=== PATIENT | male | born 1985 | race Caucasian/White ===

== ENCOUNTER → 2023-12-21 | Outpatient (CLI) | payer BC ==
[2023-12-21 16:10] LABS: ALT 32 U/L (10-49); AST 29 U/L (14-35); Albumin 4.7 g/dL (3.8-4.9); Albumin/Globulin Ratio 1.88 Ratio (1.60-3.17); Alkaline Phosphatase 79 U/L (41-126); BUN/Creat Ratio 17.33 Ratio (12.00-20.00); Blood Urea Nitrogen 20.8 mg/dL (9.0-27.0); C Reactive Protein <0.30 mg/dL (0.00-0.80); Calcium 9.7 mg/dL (8.7-10.3); Carbon Dioxide 26.7 mmol/L (21.6-31.8); Chloride 102 mmol/L (96-109); Globulin 2.5 g/dL (1.6-3.3); Glucose 82 mg/dL (70-110); Potassium 3.7 mmol/L (3.5-5.5); Sodium 142 mmol/L (135-145); Total Bilirubin 0.4 mg/dL (0.3-1.2); Total Protein 7.2 g/dL (6.2-8.2)
== END | disposition home or self-care (01) ==
LOC: LABWHC1 11:58
PROVIDERS: ATTEND Internal Medicine Critical Care Medicine
DX: D86.9 Sarcoidosis, unspecified (principal)
CPT/HCPCS: 36415; 80053; 82164; 85652; 86140

== ENCOUNTER 2024-02-13 11:25 | Day surgery (SDC) | payer BC ==
[2024-02-12 11:32] VITALS: BMI 33.2
[~2024-02-13 11:25] MED LIST: LACTATED RINGERS 1,000 ML IV SCH
[2024-02-13] MEDS: ATROPINE SULFATE 0.4 MG/ML 1 ML VIAL IM ONE (12:50)
[2024-02-13] MEDS: IV FLUID CONTINUATION 1,000 ML IV ONE (12:56)
[2024-02-13] MEDS ORDERED: LIDOCAINE 1% INJ 10MG/ML (20 ML MDV) ONE (12:58)
[2024-02-13] MEDS ORDERED: PROPOFOL 10 MG/ML 20 ML VIAL IV ONE (12:58)
[2024-02-13] MEDS ORDERED: KETAMINE HCL IN 0.9 % NACL 50 MG/5 ML SYRINGE ONE (12:58)
[2024-02-13] MEDS ORDERED: MIDAZOLAM 2 MG/2 ML VIAL ONE (12:58)
[2024-02-13] MEDS ORDERED: SUCCINYLCHOLINE CHLORIDE 200 MG/10 ML VIAL IV ONE (12:58)
[2024-02-13] MEDS ORDERED: fentaNYL (PF) 50 MCG/ML 2 ML AMP ONE (12:58)
[2024-02-13 13:44] VITALS: RESP 18; TEMP 98
--- NOTE | 2024-02-13 14:21 | XR ---
EXAMINATION TYPE: XR chest 1V portable DATE OF EXAM: 02/13/2024 CLINICAL HISTORY: POST BRONCH TECHNIQUE: Single frontal view of the chest is obtained. COMPARISON: None FINDINGS: There is no pleural effusion, or pneumothorax seen. Increased density right lower lobe. Th e cardiac silhouette size is within normal limits. The osseous structures are intact. IMPRESSION: No pneumothorax seen. [facility], , 02/13/2024 2:19 PM
[2024-02-13 14:30] VITALS: BP 129/86; PULSE 84
--- NOTE | 2024-02-13 15:02 | FL ---
EXAMINATION TYPE: FL bronchoscopy DATE OF EXAM: 02/13/2024 COMPARISON: NONE HISTORY: ENLARGED LYMPH NODES TECHNIQUE: Fluoroscopy. FINDINGS: hx chronic cough, bronch to r/o sarcoidosis IMPRESSION: As Above. [facility], , 02/13/2024 3:00 PM
--- NOTE | 2024-02-13 20:12 | PCN ---
PROCEDURE NOTE PROCEDURES PERFORMED: Bronchoscopy, airway examination, therapeutic lavage, BAL right lower lobe, brushes right lower lobe, endobronchial and transbronchial biopsies right lower lobe. PREOPERATIVE DIAGNOSIS: Rule out sarcoid. POSTOPERATIVE DIAGNOSIS: Rule out sarcoid. There was informed consent and universal timeout. The patient's procedure was done in room #1 [facility]. ANESTHESIA PROVIDED: General endotracheal anesthesia. PROCEDURE IN DETAIL: The patient was prepared in usual fashion. After the patient was intubated and on the mechanical ventilator, and anesthetized, the bronchoscope was inserted through the bronchoscope adapter connected to the endotracheal tube. The bronchoscope was pushed through the endotracheal tube into the lung. We did a thorough evaluation of both lungs, including right upper lobe and its 3 segments, right middle lobe and its 2 segments right lower lobe and its 5 segments, left upper lobe proper and its 2 segments, lingula and its 2 segments and the left lower lobe and its 4 segments. There was no endobronchial disease noted. The airways were pristine. There was no mass or tumor. There was no bleeding. Next, on the right side, under fluoroscopic guidance, we did brushes to the right lower lobe. Next, under fluoroscopic guidance, we did multiple endobronchial and transbronchial biopsies to the right lower lobe. We got at least 10 biopsy pieces. Finally, we did a BAL right lower lobe. The patient tolerated the procedure well. We checked for pneumothorax prior to removing the bronchoscope. There was none. The patient tolerated the procedure well without any bleeding. Chest x-ray will be done. By the way, the operators were Dr. Tabor and Dr. Hanson. The patient will be recovered. No additional recommendations are made. MMODL / IJN: [id number] /
[2024-02-14 04:35] LABS: Appearance,BF Bloody (Clear)
[2024-02-14 05:09] LABS: RBC, Body Fluid 89000 /UL (0-2000)
[2024-02-14 13:24] LABS: Nucleated Cells, Body Fluid 0 /UL
== END 2024-02-13 15:00 | disposition home or self-care (01) ==
LOC: ORWHC2ENDO 11:25
PROVIDERS: ATTEND Internal Medicine Critical Care Medicine
DX: R91.8 Other nonspecific abnormal finding of lung field (principal); R59.0 Localized enlarged lymph nodes; D86.9 Sarcoidosis, unspecified; I10 Essential (primary) hypertension; J45.909 Unspecified asthma, uncomplicated; Z79.82 Long term (current) use of aspirin; Z79.899 Other long term (current) drug therapy
CPT/HCPCS: 87798 ×3; 87496; 87498; 87529; 88104; 88108; 88305; 89050; 87502; 87634; 87070; 87205; 87116; 87102; 87206; 87635; 71045; 31628; 31625; 31623; 31624; J2250; J0330; J0461; J2003; J3010; J2704

== ENCOUNTER → 2024-06-02 | Outpatient (CLI) | payer BC ==
--- NOTE | 2024-06-02 13:25 | CT ---
EXAMINATION TYPE: CT chest w con DATE OF EXAM: 06/02/2024 11:45 AM COMPARISON: 11/30/2023 CLINICAL INDICATION: Male, 39 years old with history of R91.8 ABNORMAL LUNG FIELD; PHH, Lung nodules TECHNIQUE: Multiple axial images were obtained through the chest. Sagittal and coronal reformats were created for review. MIP was performed on a separate workstation. Contrast used:100 mL of Isovue 300 with IV Contrast (None if empty) Oral contrast used: (None if empty) CT DLP: 546 mGycm, Automated exposure control for dose reduction was used. FINDINGS: LUNGS/ PLEURA: No focal consolidation, pneumothorax or pleural effusion. Scattered pulmonary nodules are seen throughout the lungs examples include right lower lobe near the diaphragm 5 mm series 3 imag e 41, right middle lobe 5 mm series 3 image 30, right upper lobe 4 mm series 3 image 23.r. In the lef t lung measuring 5 mm series 3 image 14 of left lower lobe lung mass major fissure measuring 7 mm ser ies 3 image 29. AIRWAY: Patent and unremarkable. HEART: Size within normal limits. No significant coronary artery calcifications. MEDIASTINUM: Similar enlarged lymph nodes throughout the ascending and measuring up to 16 mm right lo w paratracheal, 13 mm AP window right pulmonary hilum measuring up to 19 mm, left pulmonary hilum pascual suring up to 21 mm. Subcarinal measuring up to 12 mm in short axis. VASCULATURE: No aortic aneurysm. MUSCULOSKELETAL: No acute osseous abnormalities SOFT TISSUES/LYMPH NODES: Unremarkable. LOWER NECK: No significant findings. UPPER ABDOMEN: No significant findings. IMPRESSION: 1. Nonspecific scattered pulmonary nodules throughout the lungs in the patient's age findings favor granulomatous change. Findings could represent sarcoid change of the patient has history of sarcoid. 2. Enlarged mediastinal lymph nodes similar to prior correlate for history of lymphoma, correlate fo r sarcoidosis. 3. No evidence for acute process. [facility], , 06/02/2024 1:23 PM
== END | disposition home or self-care (01) ==
LOC: RADCTMAIN 11:04
PROVIDERS: ATTEND Internal Medicine Critical Care Medicine
DX: R91.8 Other nonspecific abnormal finding of lung field (principal); R59.0 Localized enlarged lymph nodes
CPT/HCPCS: 71260; Q9967